=== PATIENT | male | born 2000 | race Native Hawaiian/Other Pacific Islander ===

== ENCOUNTER 2023-07-28 19:45 | Emergency (ER) | payer OTHER ==
[~2023-07-28] VITALS: Ht 182.9 cm; Wt 120.2 kg
[2023-07-28 19:50] VITALS: TEMP 98.7
[2023-07-28] MEDS ORDERED: MORPHINE SULFATE 4 MG INJ ONE (20:54)
[2023-07-28] MEDS ORDERED: Ondansetron HCl 4 MG INJ INJ ONE ×2 (20:55→21:49)
[2023-07-28] MEDS ORDERED: MORPHINE SULFATE 4 MG IV ONE (20:55)
[2023-07-28] MEDS ORDERED: MORPHINE SULFATE 4 MG INJ INJ ONE (20:55)
[2023-07-28] MEDS ORDERED: EPI INJ ONE (21:36)
[2023-07-28] MEDS ORDERED: LIDOCAINE INJ ONE (21:36)
[2023-07-29] MEDS ORDERED: TETANUS TOXOID-DIPHTHERIA-ACEL 0.5 ML INJ IM ONE (00:35)
[2023-07-29] MEDS ORDERED: CEPHALEXIN 500 MG CAP PO ONE ×2 (00:36→00:48)
[2023-07-29] MEDS ORDERED: IBUPROFEN 800 MG TAB PO ONE ×2 (00:36→00:49)
[2023-07-29] MEDS ORDERED: TETANUS TOXOID-DIPHTHERIA-ACEL 0.5 ML INJ ONE (00:50)
[2023-07-29] MEDS ORDERED: SODIUM CHLORIDE 0.9% ONE (01:08)
[2023-07-29 01:20] VITALS: BP 118/78
== END 2023-07-29 01:20 | disposition home or self-care (01) ==
LOC: ED 19:45
PROC: 0HQMXZZ Repair Right Foot Skin, External Approach (ICD-10-PCS; principal; 2023-07-28)
DX: S91.311A Laceration without foreign body, right foot, initial encounter (principal); U07.0 Vaping-related disorder; W45.8XXA Other foreign body or object entering through skin, initial encounter; Y99.0 Civilian activity done for income or pay
CPT/HCPCS: 90471; 90715; 96374; 96375; 99283; 99284; J2270; J2405